=== PATIENT | female | born 1985 | race Caucasian/White ===

== ENCOUNTER 2017-06-12 11:41 | Emergency (ER) | payer OTHER ==
[~2017-06-12] VITALS: Ht 165.1 cm; Wt 59.0 kg
[~2017-06-12 11:41] MED LIST: ACZONE60 GM; BACTRIM DS TAB1 EAC1 PO; CELEXA20 MG PO; EPIDUO GEL PUMP45 GM TP; FLONASE 0.05%50 MCG NASAL; TESSALON PERLE100 MG PO; ZYRTEC 10 MG TA10 MG PO
[2017-06-12 12:03] LABS: URINE BILIRUBIN NEGATIVE (Negative); URINE BLOOD 3+ (Negative); URINE CLARITY CLEAR; URINE COLOR YELLOW; URINE GLUCOSE-RANDOM NEGATIVE (Negative); URINE KETONES NEGATIVE (Negative); URINE LEUKOCYTES-REFLEX NEGATIVE (Negative); URINE NITRITE-REFLEX NEGATIVE (Negative); URINE PROTEIN NEGATIVE (Negative); URINE SPECIFIC GRAVITY <= 1.005 (1.005-1.030); URINE UROBILINOGEN 0.2 E.U./dl (0.2-1.0)
[2017-06-12 12:16] LABS: BACTERIA-REFLEX None Seen /HPF (None Seen); CASTS None Seen /LPF (None Seen); CRYSTALS None Seen /LPF (None Seen); MUCUS 0-3 Light strn/LPF (None Seen); SQUAMOUS 4-10 Moderate /LPF (0-3); URINE RBC 0-2 Rare /HPF (0-2); URINE WBC-REFLEX 0-5 Rare /HPF (0-5)
[2017-06-12 12:26] LABS: ABSOLUTE EOSINOPHILS 0.1 thou/uL (0.0-0.7); ABSOLUTE LYMPHOCYTES 1.8 thou/uL (0.8-5.3); ABSOLUTE MONOCYTES 0.4 thou/uL (0.0-1.2); ABSOLUTE NEUTROPHILS 2.8 thou/uL (1.6-8.1); BASOPHILS 0.5 %; EOSINOPHILS 2.6 %; HEMATOCRIT 44.9 % (37.0-47.0); HEMOGLOBIN 15.2 gm/dL (12.0-15.0); LYMPHOCYTES 34.8 %; MCH 30.6 pg (26.0-34.0); MCHC 33.9 g/dL (28.0-37.0); MCV 90.3 fL (80.0-100.0); MPV 8.6 fl. (7.2-11.1); NUCLEATED RBCS 0 /100WBC; PLATELET COUNT* 180 thou/uL (150-400); POLYS 54.1 %; RBC 4.98 mil/uL (4.20-5.00); RDW-CV 13.1 % (10.5-14.5); WBC 5.1 thou/uL (4.0-11.0)
[2017-06-12 12:46] LABS: CALCIUM 9.2 mg/dL (8.5-10.1); CREATININE 0.8 mg/dL (0.6-1.3); POTASSIUM 3.9 mmol/L (3.5-5.1)
[2017-06-12 12:48] LABS: TOTAL BILIRUBIN 0.8 mg/dL (<0.1-1.0); TOTAL PROTEIN 7.3 g/dL (6.4-8.2)
[2017-06-12 13:10] VITALS: BP 122/71
== END 2017-06-12 13:11 | disposition home or self-care (01) ==
LOC: M.ERS 11:41
PROVIDERS: Nurse Practitioner Family
DX: N93.8 Other specified abnormal uterine and vaginal bleeding (principal); F32.9 Major depressive disorder, single episode, unspecified; F17.200 Nicotine dependence, unspecified, uncomplicated; Z90.89 Acquired absence of other organs; Z88.0 Allergy status to penicillin; Z88.1 Allergy status to other antibiotic agents

== ENCOUNTER 2017-09-19 22:54 | Emergency (ER) | payer OTHER ==
[~2017-09-19] VITALS: Ht 154.9 cm; Wt 63.5 kg
[2017-09-19] MEDS ORDERED: ACCUTANE (23:00)
[2017-09-19] MEDS ORDERED: CELEXA (23:00)
[2017-09-20 00:35] VITALS: BP 101/54
== END 2017-09-20 00:37 | disposition home or self-care (01) ==
LOC: M.ERS 22:54
DX: R21 Rash and other nonspecific skin eruption (principal); T37.0X5A Adverse effect of sulfonamides, initial encounter; F32.9 Major depressive disorder, single episode, unspecified; Z88.0 Allergy status to penicillin; Z88.1 Allergy status to other antibiotic agents; Y92.89 Other specified places as the place of occurrence of the external cause